=== PATIENT | female | born 1955 | race Caucasian/White ===

== ENCOUNTER 2021-01-23 07:06 | Outpatient (CLI) | payer MEDICARE ==
[2021-01-23] VITALS (17 sets, daily range): BP systolic 106–145; BP diastolic 47–75; PULSE 75–99
[~2021-01-23] VITALS: Ht 147.3 cm; Wt 62.7 kg
[2021-01-23] MEDS ORDERED: COZAAR100 MG PO (07:47)
[2021-01-23] MEDS ORDERED: PRAVACHOL 40MG40 MG PO (07:48)
[2021-01-23] MEDS ORDERED: PRILOSEC 20MG20 MG PO (07:48)
[2021-01-23] MEDS ORDERED: PROMETHAZINE H118 ML PO (07:50)
[2021-01-23] MEDS ORDERED: IMITREX50 MG PO (07:50)
[2021-01-23] MEDS ORDERED: PROBIOTIC BLEN1 EACH PO (07:51)
[2021-01-23] MEDS ORDERED: TYLENOL PM EXTR1 TA1 PO (07:52)
[2021-01-23] MEDS ORDERED: MELATONIN5 M1 SL (07:53)
[2021-01-23] MEDS ORDERED: VALIUM 5MG T5 MG/TAB PO (07:54)
[2021-01-23] MEDS ORDERED: ONE-A-DAY ESSE1 EACH PO (07:54)
--- NOTE | 2021-01-23 08:30 | NUR ---
PT TAKEN TO CT AMBULATORY. PLACED ON CT TABLE AND MONITORING EQUIPMENT PLACED.
--- NOTE | 2021-01-23 09:34 | NUR ---
PROCEDURE COMPLETED. DR LOPES TOOK THREE SAMPLES. SAMPLES TO LAB
--- NOTE | 2021-01-23 11:58 | NUR ---
Discharge instructions given to pt.pt verbalizes understanding.INT removed,catheter tip intact.
== END 2021-01-23 14:27 | disposition home or self-care (01) ==
LOC: COL.RAD 07:06
DX: R91.1 Solitary pulmonary nodule (principal)
CPT/HCPCS: J3010